=== PATIENT | female | born 1970 | race Two or more races ===

== ENCOUNTER 2018-04-04 09:48 | Outpatient (CLI) | payer OTHER ==
[2018-04-04] MEDS ORDERED: LIPO-FLAVONOID1 EACH PO (11:10)
== END 2018-04-04 10:15 | disposition home or self-care (01) ==
LOC: OFIC 805 09:48
DX: R42 Dizziness and giddiness (principal); J31.0 Chronic rhinitis

== ENCOUNTER 2018-12-14 12:28 | Outpatient (CLI) | payer OTHER ==
[~2018-12-14 12:28] MED LIST: LIPO-FLAVONOID1 EACH PO
== END 2018-12-14 12:43 | disposition home or self-care (01) ==
LOC: SONOGRAMA 12:28
DX: N60.21 Fibroadenosis of right breast (principal)

== ENCOUNTER 2023-06-15 12:35 | Emergency (ER) | payer OTHER ==
[~2023-06-15] VITALS: Ht 167.6 cm; Wt 67.1 kg
[2023-06-15 13:49] LABS: HEMATOCRIT 27.2 % (36.0-45.00); HEMOGLOBIN 9.2 g/dL (12.0-15.00); MEAN CELL VOLUME 91.4 fL (80.00-100.00); MEAN CORPUSCULAR HEMOGLOBIN 30.8 pg (27.00-32.0); MEAN CORPUSCULAR HGB CONC 33.7 g/dl (32.0-36.0); PLATELET COUNT 465 K/uL (150-450); RED BLOOD COUNT 2.98 M/uL (4.00-6.00); RED CELL DISTRIBUTION WIDTH 14.9 % (11.5-14.5)
== END 2023-06-15 14:29 | disposition home or self-care (01) ==
LOC: ER 12:35
PROVIDERS: Emergency Medicine
DX: N93.8 Other specified abnormal uterine and vaginal bleeding (principal)